=== PATIENT | male | born 1940 | race Caucasian/White ===

== ENCOUNTER → 2017-07-16 | Outpatient (CLI) | payer OTHER, BC ==
[~2017-07-16] MED LIST: AMLODIPINE BESY10 MG PO; APAP650 PO; ASPIRIN81 M2 PO; EFFIENT10 MG PO; HYDROCHLOROTH12.5 MG PO; LIPITOR10 MG PO; LIPITOR40 MG PO; LOPRESSOR100 MG; LOSARTAN-HCTZ1 EAC2 PO; MICARDIS HCT 81 EACH; NITROGLYCERIN0.4 MG PO; NITROSTAT0.4 MG; TOPROL XL100 MG PO
== END ==
LOC: NUC 07:28
DX: I25.10 Atherosclerotic heart disease of native coronary artery without angina pectoris (principal); E78.5 Hyperlipidemia, unspecified; I10 Essential (primary) hypertension; Z87.891 Personal history of nicotine dependence

== ENCOUNTER → 2018-07-15 | Outpatient (CLI) | payer OTHER, BC ==
--- NOTE | 2018-07-15 09:35 | 2DMMODE ---
[facility] [place] [address] 2 D/M-MODE ECHOCARDIOGRAM Name: GAYLE VALENCIA AMANDA Room #: REG [facility]#: [id number] ������������� Admission: 07/15/18 ������������� Attend Phys: He Chase MD Discharge: ��� ������������� ��� Date of : 42 Date of Service: 07/15/18 0935 �� Report #: [id number] �������� ��������������������������������������������[id number] THIS REPORT FOR: //name// APPROVED REPORT Study performed: 07/15/2018 09:02:25 EXAM: Comprehensive 2D, Doppler, and color-flow Echocardiogram Patient Location: Out-Patient Status: routine BSA: 1.89 HR: 41 bpm BP: 118/62 mmHg Rhythm: Bradycardia/Sinus/PVCs Other Information Study Quality: Good Indications CAD. Hx: Stents, HTN, HLP. 2D Dimensions RVDd: 37.98 mm IVSd: 12.45 (7-11mm) LVOT Diam: 20.92 (18-24mm) LVDd: 47.98 mm PWd: 9.35 (7-11mm) Ascending Ao: 33.89 (22-36mm) LVDs: 34.55 (25-40mm) Aortic Root: 32.79 mm Volumes Left Atrial Volume (Systole) Single Plane 4CH: 61.37 mL Single Plane 2CH: 71.00 mL LA ESV Index: 38.00 mL/m2 Aortic Valve AoV Peak Benji.: 2.09 m/s AO Peak Gr.: 17.52 mmHg LVOT Max P.54 mmHg AO Mean Gr.: 8.92 mmHg AO V2 Mean: 1.41 m/s LVOT Max V: 1.18 m/s AO V2 VTI: 58.04 cm COLIN Vmax: 1.93 cm2 Mitral Valve E/A Ratio: 0.8 [facility] [address] [place] [address] 2 D/M-MODE ECHOCARDIOGRAM Name: ERIKGAYLE AMANDA Room #: [facility]#: [id number] ������������� Admission: 07/15/18 ������������� Attend Phys: He Chase MD Discharge: ��� ������������� ��� Date of : 42 Date of Service: 07/15/18 0935 �� Report #: [id number] �������� ��������������������������������������������[id number] MV Decel. Time: 275.18 ms MV E Max Benji.: 0.73 m/s MV A Benji.: 0.93 m/s MV PHT: 79.80 ms IVRT: 119.95 ms Pulmonary Valve PV Peak Benji.: 1.06 m/s PV Peak Gr.: 4.52 mmHg Tricuspid Valve TR Peak Benji.: 2.42 m/s RAP Estimate: 5.00 mmHg TR Peak Gr.: 23.38 mmHg PA Pressure: 28.00 mmHg Left Ventricle The left ventricle is normal size. Mild basal septal hypertrophy is present. Left ventricular systolic function is normal. LVEF is 50-55%. Mild diastolic dysfunction is present (impaired relaxation pattern). Right Ventricle The right ventricle is normal size. The right ventricular systolic function is normal. Atria Left atrium is mildly dilated. The right atrium size is normal. Aortic Valve Aortic valve is thickened and calcified. Mild aortic regurgitation. Mitral Valve Mitral valve leaflets are mildly thickened. Mild to moderate mitral regurgitation. Tricuspid Valve The tricuspid valve is normal in structure. Mild tricuspid regurgitation. Estimated PAP is 28mmHg. Pulmonic Valve The pulmonary valve is normal in structure. Mild pulmonic regurgitation. Great Vessels The aortic root is normal in size. The ascending aorta is normal in [facility] [address] [place] [address] 2 D/M-MODE ECHOCARDIOGRAM Name: GAYLE VALENCIA Room #: REG [facility]#: [id number] ������������� Admission: 07/15/18 ������������� Attend Phys: He Chase MD Discharge: ��� ������������� ��� Date of : 42 Date of Service: 07/15/18 0935 �� Report #: [id number] �������� ��������������������������������������������[id number] size. IVC is normal in size and collapses >50% with inspiration. Pericardium There is no pericardial effusion. <Conclusion> The left ventricle is normal size. Left ventricular systolic function is normal. Mild diastolic dysfunction is present (impaired relaxation pattern). The right ventricle is normal size. Left atrium is mildly dilated. Aortic valve is thickened and calcified. Mild aortic regurgitation. Mitral valve leaflets are mildly thickened. Mild to moderate mitral regurgitation. Mild tricuspid regurgitation. Estimated PAP is 28mmHg. ��������������������������������������������� <ELECTRONICALLY SIGNED> ���������������������������������������� By: He Chase MD ��������������������������������������������� 07/15/1835 4 4 He Chase MD /INF
== END ==
LOC: CV 08:12
DX: I08.8 Other rheumatic multiple valve diseases (principal); I25.10 Atherosclerotic heart disease of native coronary artery without angina pectoris

== ENCOUNTER → 2019-07-15 | Outpatient (CLI) | payer OTHER, BC ==
[~2019-07-15] MED LIST changes: +FLOMAX0.4 MG PO; +PROSCAR 5MG TABL5 M1 PO
== END ==
LOC: SJCVCIMAG 07:40
PROVIDERS: ATTEND Internal Medicine Cardiovascular Disease
DX: I25.10 Atherosclerotic heart disease of native coronary artery without angina pectoris (principal); I49.3 Ventricular premature depolarization; I44.0 Atrioventricular block, first degree; I10 Essential (primary) hypertension; E78.00 Pure hypercholesterolemia, unspecified; Z79.899 Other long term (current) drug therapy; Z87.891 Personal history of nicotine dependence

== ENCOUNTER → 2019-07-21 | Outpatient (CLI) | payer OTHER, BC | END | disposition home or self-care (01) | LOC: CATH 06:29 | DX: R94.39 Abnormal result of other cardiovascular function study (principal); I25.10 Atherosclerotic heart disease of native coronary artery without angina pectoris; R06.00 Dyspnea, unspecified; T82.855A Stenosis of coronary artery stent, initial encounter; I10 Essential (primary) hypertension; E78.00 Pure hypercholesterolemia, unspecified; I25.2 Old myocardial infarction; Z98.890 Other specified postprocedural states; Z79.899 Other long term (current) drug therapy; Z79.82 Long term (current) use of aspirin ==

== ENCOUNTER → 2019-08-11 | Outpatient (CLI) | payer OTHER, BC | LOC: SJCVC 10:55 | PROVIDERS: ATTEND Internal Medicine Cardiovascular Disease | DX: R94.31 Abnormal electrocardiogram [ECG] [EKG] (principal); I44.0 Atrioventricular block, first degree; I25.10 Atherosclerotic heart disease of native coronary artery without angina pectoris; I10 Essential (primary) hypertension; E78.00 Pure hypercholesterolemia, unspecified; R60.9 Edema, unspecified ==

== ENCOUNTER → 2020-02-27 | Outpatient (CLI) | payer OTHER, BC | LOC: SJCVCIMAG 01-22 07:43 | PROVIDERS: ATTEND Internal Medicine Cardiovascular Disease | DX: I65.23 Occlusion and stenosis of bilateral carotid arteries (principal); R00.1 Bradycardia, unspecified; I44.0 Atrioventricular block, first degree; R94.31 Abnormal electrocardiogram [ECG] [EKG]; I25.10 Atherosclerotic heart disease of native coronary artery without angina pectoris; I10 Essential (primary) hypertension; E78.00 Pure hypercholesterolemia, unspecified; R60.9 Edema, unspecified; I77.9 Disorder of arteries and arterioles, unspecified; Z79.82 Long term (current) use of aspirin; Z79.899 Other long term (current) drug therapy; Z87.891 Personal history of nicotine dependence ==

== ENCOUNTER → 2020-09-08 | Outpatient (CLI) | payer OTHER, BC | LOC: SJCVCIMAG 09:05 | PROVIDERS: ATTEND Internal Medicine Cardiovascular Disease | DX: I08.0 Rheumatic disorders of both mitral and aortic valves (principal); I44.0 Atrioventricular block, first degree; I49.1 Atrial premature depolarization; R94.31 Abnormal electrocardiogram [ECG] [EKG]; I25.10 Atherosclerotic heart disease of native coronary artery without angina pectoris; E78.00 Pure hypercholesterolemia, unspecified; R60.9 Edema, unspecified; I65.23 Occlusion and stenosis of bilateral carotid arteries; I12.9 Hypertensive chronic kidney disease with stage 1 through stage 4 chronic kidney disease, or unspecified chronic kidney disease; N18.9 Chronic kidney disease, unspecified; E78.5 Hyperlipidemia, unspecified; Z98.61 Coronary angioplasty status; Z88.8 Allergy status to other drugs, medicaments and biological substances; Z79.82 Long term (current) use of aspirin; Z79.899 Other long term (current) drug therapy; Z87.891 Personal history of nicotine dependence; Z82.49 Family history of ischemic heart disease and other diseases of the circulatory system ==

== ENCOUNTER → 2021-03-10 | Outpatient (CLI) | payer OTHER, BC | LOC: SJCVC 09:56 | PROVIDERS: ATTEND Internal Medicine Cardiovascular Disease | DX: R94.31 Abnormal electrocardiogram [ECG] [EKG] (principal); I49.8 Other specified cardiac arrhythmias; I44.0 Atrioventricular block, first degree; I12.9 Hypertensive chronic kidney disease with stage 1 through stage 4 chronic kidney disease, or unspecified chronic kidney disease; N18.9 Chronic kidney disease, unspecified; I25.10 Atherosclerotic heart disease of native coronary artery without angina pectoris; E78.00 Pure hypercholesterolemia, unspecified; R60.9 Edema, unspecified; I65.29 Occlusion and stenosis of unspecified carotid artery; E78.5 Hyperlipidemia, unspecified; Z79.82 Long term (current) use of aspirin; Z79.899 Other long term (current) drug therapy; Z87.891 Personal history of nicotine dependence; Z82.49 Family history of ischemic heart disease and other diseases of the circulatory system ==